=== PATIENT | male | born 1950 | race Caucasian/White ===

== ENCOUNTER 2019-10-29 12:38 | Inpatient (IN) | payer OTHER ==
[~2019-10-29] VITALS: Ht 188 cm; Wt 81.6 kg
[2019-10-29] MEDS: ENOXAPARIN SOD 80 MG/0.8ML SYRINGE SC SCH (00:05)
[~2019-10-29 12:38] MED LIST: ENOXAPARIN SOD 40 MG/0.4 ML SYRINGE SC ONE
[2019-10-29] MEDS ORDERED: SODIUM CHLORIDE 0.9% 1,000 ML IV ONE ×2 (12:43)
[2019-10-29] MEDS ORDERED: EPINEPHrine HCL 1 MG/1 ML AMP SC ONE (12:45)
[2019-10-29] MEDS ORDERED: cefTRIAXone 1GM/50ML D5W 50 ML IV ONE ×2 (12:45→15:15)
[2019-10-29] MEDS ORDERED: diphenhdrAMINE HCL 50 MG/1 ML VL IV ONE (12:45)
[2019-10-29] MEDS ORDERED: ALBUTEROL SULF 2.5 MG/0.5ML(0.5%) NEB SOLN NEB ONE (12:45)
[2019-10-29] MEDS ORDERED: IPRATROPIUM BROM 0.5 MG/2.5ML INH SOL NEB ONE (12:45)
[2019-10-29] MEDS ORDERED: DexAMETHasone SOD PHOS 10MG/1ML VIAL INJ IV ONE (12:45)
[2019-10-29] MEDS ORDERED: ALBUTEROL SULF 2.5 MG/0.5ML(0.5%) NEB SOLN ONE (12:45)
[2019-10-29] MEDS ORDERED: IPRATROPIUM BROM 0.5 MG/2.5ML INH SOL ONE (12:45)
[2019-10-29 13:31] LABS: Hematocrit 47.1 % (41.0-53.0); Hemoglobin 15.1 g/dL (13.5-17.5); Mean Corpuscular Hemoglobin 31.1 pg (28.0-32.0); Mean Corpuscular Volume 97.3 fL (80.0-100.0); Platelet Count (auto) 284 10^3/uL (140-450); Red Blood Cells 4.84 10^6/uL (4.5-5.90); Red Cell Distribution Width 14.2 % (11.8-14.3); White Blood Cell 15.3 10^3/uL (4.4-10.8)
[2019-10-29 13:34] LABS: Basophils % (manual) 0 (0.0-2.0); Blast Cells 0; Eosinophils % (manual) 0 (0-7); Metamyelocytes % 0; Myelocytes % 0; Promyelocytes % 0; Reactive Lymphocytes 0
[2019-10-29 13:43] LABS: INR 1.07 (0.9-1.15); Partial Thromboplastin Time 25.2 sec (23.64-32.05)
[2019-10-29 13:44] LABS: Band Neutrophils % (manual) 1; Lymphocytes % (manual) 23 (10.0-50.0); Monocytes % (manual) 6 (0-12)
[2019-10-29 13:46] LABS: Albumin 3.5 g/dL (3.4-5.0); BUN/Creatinine Ratio 14.4; Calcium 8.5 mg/dL (8.5-10.1); Potassium 4.1 mmol/L (3.5-5.1)
[2019-10-29 13:47] LABS: CRP High Sensitivity 0.53 mg/dL (< 0.3)
[2019-10-29 13:51] LABS: Total Protein 7.4 g/dL (6.4-8.2)
[2019-10-29 13:57] LABS: Lactic Acid w/Reflex 8.6 mmol/L (0.4-2.0)
[2019-10-29] MEDS: MAGNESIUM SULFATE 1GM/100ML 100 ML IV SCH ×2 (14:00→14:05)
[2019-10-29] MEDS ORDERED: ENOXAPARIN SOD 80 MG/0.8ML SYRINGE SC ONE (14:45)
[2019-10-29] MEDS ORDERED: ASPirin 81 mg TAB PO ONE (14:45)
[2019-10-29] MEDS ORDERED: NITROGLYCERIN 0.4 MG SL TAB SL PRN (15:15)
[2019-10-29] MEDS ORDERED: ACETAMINOPHEN 500 MG TAB PO PRN ×3 (15:15→16:30)
[2019-10-29] MEDS ORDERED: LACTULOSE 20Gm/30ML SOLN PO PRN (15:15)
[2019-10-29] MEDS ORDERED: MORPHINE SULF INJ 2 MG/ML SYRINGE 1ML IV PRN (15:15)
[2019-10-29] MEDS ORDERED: ALBUTEROL SULF 2.5 MG/0.5ML(0.5%) NEB SOLN NEB PRN (15:15)
[2019-10-29] MEDS ORDERED: PROMETHAZINE HCL 25 MG/ML 1ML IV PRN (15:15)
[2019-10-29] MEDS ORDERED: traMADol HCL 50 MG TAB PO PRN (15:15)
[2019-10-29] MEDS ORDERED: IOHEXOL 350 MG/ML 100ML IJ ONE (15:39)
[2019-10-29] MEDS: methylPREDNISolone SOD SUCC 40 MG/ML VL IV SCH (17:51)
[2019-10-29] MEDS: MORPHINE SULF INJ 2 MG/ML SYRINGE 1ML IV PRN (17:54)
[2019-10-29] MEDS: SODIUM CHLORIDE 0.9% 1,000 ML IV SCH (17:55)
[2019-10-29] MEDS: DOXYCYCLINE 100 MG TAB/CAP PO SCH (17:56)
[2019-10-29] MEDS: ALBUTEROL SULF 2.5 MG/0.5ML(0.5%) NEB SOLN NEB SCH (18:00)
[2019-10-29] MEDS: IPRATROPIUM BROM 0.5 MG/2.5ML INH SOL NEB SCH (18:00)
[2019-10-29] MEDS: BUDESONIDE (INHALATION) 180 MCG IH IN SCH (22:00)
[2019-10-30] VITALS (7 sets, daily range): BP systolic 98–119; BP diastolic 62–73
[2019-10-30] MEDS: MORPHINE SULF INJ 2 MG/ML SYRINGE 1ML IV PRN (00:15)
--- NOTE | 2019-10-30 03:30 | NUR ---
tele admit from ED pt arrived awake alert and oriented x4 on room air. no distress noted or expressed. pt denies any pain. pt oriented to this nurse, room, bed controls, restroom, use of call light. pt updated on plan of care. pt reports having helped a neighbor moving boxes and afterward he "couldnt catch my breath and i called 911". pt bed locked, low and 2x rails up call light in reach. tele 55 showing nsr 72. this nurse to round q1hr and prn. pt encouraged to call as needed.
[2019-10-30] MEDS: methylPREDNISolone SOD SUCC 40 MG/ML VL IV SCH ×2 (03:45→14:47)
[2019-10-30] MEDS: SODIUM CHLORIDE 0.9% 1,000 ML IV SCH ×2 (04:35→17:51)
[2019-10-30] MEDS: IPRATROPIUM BROM 0.5 MG/2.5ML INH SOL NEB SCH ×4 (06:41→19:03)
[2019-10-30] MEDS: ALBUTEROL SULF 2.5 MG/0.5ML(0.5%) NEB SOLN NEB SCH ×4 (06:41→19:03)
[2019-10-30] MEDS: BUDESONIDE (INHALATION) 180 MCG IH IN SCH (06:42)
--- NOTE | 2019-10-30 07:12 | NUR ---
Opening Shift Note: Assumed care of patient. Patient sleeping at this time. No S/S of distress/SOB or pain. Respirations even and unlabored. Bed in lowest locked position, side rails up x 2, call light within reach. Patient will be instructed on POC and to call for assist PRN, will continue to monitor for changes Q1hr and PRN.
--- NOTE | 2019-10-30 08:15 | NUR ---
Patient placed back on tele monitor. Patient states "I don't like these sticker things." Patient educated on need for them and this time.
[2019-10-30] MEDS: ENOXAPARIN SOD 80 MG/0.8ML SYRINGE SC SCH ×2 (09:51→22:31)
[2019-10-30] MEDS: CHOLECALCIFEROL (VITD3) 1,000UNIT=25mCg TAB PO SCH (09:52)
[2019-10-30] MEDS: cefTRIAXone 1GM/50ML D5W 50 ML IV SCH (09:52)
[2019-10-30] MEDS: DOXYCYCLINE 100 MG TAB/CAP PO SCH ×2 (09:52→22:30)
[2019-10-30] MEDS: ASCORBIC ACID 1,000 MG TAB PO SCH (10:00)
[2019-10-30] MEDS ORDERED: ENOXAPARIN SOD 40 MG/0.4 ML SYRINGE SC SCH (10:00)
[2019-10-30] MEDS: ZINC SULFATE 220mg CAP or TAB PO SCH (10:00)
--- NOTE | 2019-10-30 12:12 | NUR ---
DR. MARINO: Dr. Pacheco at bedside, discussed POC with patient. Patient verbally agreed.
--- NOTE | 2019-10-30 12:42 | NUR ---
PT. REFUSED TO TAKE BREATHING TX. AFTER 2MIN,HE TOOK OFF THE MASK AND SET IT ON THE BED. GUARDS AT THE BEDSIDE. TX. STOPPED. NO RESP. DISTRESS NOTED, WILL CONTINUE TO MONITOR RESP. STATUS.
--- NOTE | 2019-10-30 15:07 | NUR ---
CRITICAL LAB: TROPONIN 0.940 NITESH FLECTHER OLIVE BRINE TESTER PAGED AT THIS TIME
--- NOTE | 2019-10-30 15:10 | NUR ---
RECEIVED CALL FROM VIET FLETCHER. NEW ORDERS RECEIVED.
--- NOTE | 2019-10-30 15:19 | NUR ---
EKG PERFORMED PER BUSINESS SYSTEMS DEVELOPER ORDERS. NO DISTRESS NOTED AT THIS TIME. WILL CONTINUE TO MONITOR.
--- NOTE | 2019-10-30 15:54 | NUR ---
VIET HARVEY AT NURSES STATION TO READ EKG.
[2019-10-30 16:31] LABS: Cholesterol 174 mg/dL (< 200)
[2019-10-30 16:33] LABS: HDL Cholesterol 78 mg/dL (40-59); LDL Cholesterol 84 mg/dL (< 100); Triglycerides 94 mg/dL (< 150)
--- NOTE | 2019-10-30 17:45 | NUR ---
Patient off tele. Refused to be placed back on tele. Patient educated on need for tele. Will attempt again.
[2019-10-30] MEDS ORDERED: FLUT250M2 INH (18:20)
[2019-10-30] MEDS ORDERED: FLUT100M IN (18:20)
--- NOTE | 2019-10-30 18:51 | NUR ---
CLOSING NOTE: Patient resting in bed. No S/S of distress. Care endorsed to NOC RN.
--- NOTE | 2019-10-30 19:12 | NUR ---
Opening Shift Note: Assumed care of patient. Patient awake, alert and oriented x 4, no s/s of SOB or distress, patient denies pain at this time. Bed in lowest locked position with two side rails raised and call witt within reach. Instructed on POC and encouraged to use call witt for assistance, all questions and concerns addressed, patient verbalizes understanding. Will continue to monitor Q1 hr and PRN.
--- NOTE | 2019-10-30 22:00 | NUR ---
CRITICAL TROPONIN OF 0.66, HOSPITALIST PAGED.
--- NOTE | 2019-10-30 22:15 | NUR ---
HOSPITALIST: SPOKE WITH HOSPITALIST MD PAVON REGARDING TROPONIN, LEVELS ARE TRENDING DOWN, NO NEW ORDERS RECEIVED AT THIS TIME. WILL CONTINUE TO MONITOR.
--- NOTE | 2019-10-30 23:41 | NUR ---
CRITICAL LAB TROPONIN 0.633, HOSPITALIST AWARE OF ELEVATED TROPONIN, LEVELS TRENDING DOWN, HOSPITALIST NOT PAGED AT THIS TIME.
[2019-10-31] MEDS: IPRATROPIUM BROM 0.5 MG/2.5ML INH SOL NEB SCH ×4 (00:19→18:54)
[2019-10-31] MEDS: ALBUTEROL SULF 2.5 MG/0.5ML(0.5%) NEB SOLN NEB SCH ×4 (00:19→18:54)
[2019-10-31] MEDS: methylPREDNISolone SOD SUCC 40 MG/ML VL IV SCH ×2 (03:56→15:09)
[2019-10-31 05:00] VITALS: BP 110/69
--- NOTE | 2019-10-31 06:17 | NUR ---
Critical troponin 0.526, MD aware of labs trending down.
[2019-10-31] MEDS: SODIUM CHLORIDE 0.9% 1,000 ML IV SCH ×2 (07:11→20:31)
--- NOTE | 2019-10-31 07:25 | NUR ---
Opening Shift Note: Assumed care of patient, awake and alert. No S/S of distress/SOB or pain. Bed in lowest locked position, side rails up x 2, call light within reach. Patient instructed on POC and to call for assist PRN, will continue to monitor for changes Q1hr and PRN.
[2019-10-31 09:00] VITALS: BP 121/65
[2019-10-31] MEDS: ENOXAPARIN SOD 80 MG/0.8ML SYRINGE SC SCH ×2 (09:52→21:14)
[2019-10-31] MEDS: cefTRIAXone 1GM/50ML D5W 50 ML IV SCH (09:52)
[2019-10-31] MEDS: DOXYCYCLINE 100 MG TAB/CAP PO SCH ×2 (09:52→21:14)
[2019-10-31] MEDS: ZINC SULFATE 220mg CAP or TAB PO SCH (09:52)
[2019-10-31] MEDS: ASCORBIC ACID 1,000 MG TAB PO SCH (09:52)
[2019-10-31] MEDS: CHOLECALCIFEROL (VITD3) 1,000UNIT=25mCg TAB PO SCH (09:53)
[2019-10-31] MEDS: MORPHINE SULF INJ 2 MG/ML SYRINGE 1ML IV PRN ×2 (11:43→21:15)
--- NOTE | 2019-10-31 12:54 | NUR ---
Respiratory note: PT REFUSING SCHEDULED MED NEB TX, STATES HE DOES NOT NEED IT. PT DENIES SOB OR DIFF BREATHING. NO DISTRESS NOTED. PT AND RN AWARE TO HAVE RT PAGED IF NEEDED. HR 68 RR 18 SPO2 94% ON RA BREATH SOUNDS ARE CLEAR/DIMINISHED. PT AWARE NEXT SCHEDULED TX IS 18:00.
[2019-10-31 14:44] VITALS: BP 121/77
[2019-10-31 17:00] VITALS: BP 106/56
--- NOTE | 2019-10-31 18:44 | NUR ---
CLOSING NOTE: Patient resting in bed. No S/S of distress at this time. Care endorsed to NOC RN.
--- NOTE | 2019-10-31 19:18 | NUR ---
Opening note Assumed care of patient. Patient is alert and orientated x4. No sob or distress noted. Patient washed up, provided patient with new gown. Bed locked in lowest position, side rails up x2. POC reviewed. no questions at this time. Will continue to monitor.
--- NOTE | 2019-10-31 21:15 | NUR ---
Pain Patient states pain 8/10 on his back. Medicated with morphine per md orders. Will continue to monitor.
[2019-10-31 22:00] VITALS: BP 113/60
--- NOTE | 2019-10-31 22:02 | NUR ---
Dr Hazel at bedside Dr Hazel at bedside. Will follow any new orders and continue to monitor patient.
[2019-11-01] MEDS: ALBUTEROL SULF 2.5 MG/0.5ML(0.5%) NEB SOLN NEB SCH ×4 (00:18→19:17)
[2019-11-01] MEDS: IPRATROPIUM BROM 0.5 MG/2.5ML INH SOL NEB SCH ×4 (00:18→19:17)
[2019-11-01] MEDS: methylPREDNISolone SOD SUCC 40 MG/ML VL IV SCH ×2 (02:41→15:50)
--- NOTE | 2019-11-01 02:47 | NUR ---
Patient rounding Patient sleeping chest evenly rising. no SOB or distress noted. Will continue to monitor.
[2019-11-01 05:00] VITALS: BP 103/59
--- NOTE | 2019-11-01 06:55 | NUR ---
Closing note Endorsed care to day shift RN.
[2019-11-01 09:00] VITALS: BP 122/74
[2019-11-01] MEDS: ZINC SULFATE 220mg CAP or TAB PO SCH (09:32)
[2019-11-01] MEDS: CHOLECALCIFEROL (VITD3) 1,000UNIT=25mCg TAB PO SCH (09:32)
[2019-11-01] MEDS: SODIUM CHLORIDE 0.9% 1,000 ML IV SCH ×2 (09:51→23:11)
[2019-11-01] MEDS: ASCORBIC ACID 500 MG TAB PO SCH (10:00)
[2019-11-01] MEDS: cefTRIAXone 1GM/50ML D5W 50 ML IV SCH (10:24)
[2019-11-01] MEDS: DOXYCYCLINE 100 MG TAB/CAP PO SCH ×2 (10:24→21:00)
[2019-11-01] MEDS: ENOXAPARIN SOD 80 MG/0.8ML SYRINGE SC SCH ×2 (10:24→21:01)
[2019-11-01 13:00] VITALS: BP 130/77
--- NOTE | 2019-11-01 13:17 | NUR ---
IV insertion: IV access obtained, via clean sterile technique by inserting 18 gauge catheter at right forearm after 1 attempt. IV secured properly. No trauma to site. Patient tolerated well. IV insertion: IV access obtained, via clean sterile technique by inserting 20 gauge catheter at left forearm after 1 attempt. IV secured properly. No trauma to site. Patient tolerated well. IV removal: right wrist IV DC'd with clean sterile technique, catheter fully intact. Pressure dressing applied to site. Patient tolerated well.
[2019-11-01] MEDS: MORPHINE SULF INJ 2 MG/ML SYRINGE 1ML IV PRN ×2 (16:45→21:08)
[2019-11-01 17:00] VITALS: BP 131/58
--- NOTE | 2019-11-01 18:54 | NUR ---
CLOSING NOTE: Patient resting in bed. No S/S of distress or pain at this time. Care endorsed to NOC RN
[2019-11-01 19:11] VITALS: BP 130/77
--- NOTE | 2019-11-01 19:28 | NUR ---
Opening note Assumed care of patient. Patient alert and orientated x4. No sob or distress noted. bed locked in lowest position side rails up x2. POC Reviewed. No questions at this time. Call light within reach. Will continue to monitor.
--- NOTE | 2019-11-01 21:15 | NUR ---
Pain Patient states pain 9/10 in lower back. medicated with Morphine per md orders. Will continue to monitor and reassess pain.
[2019-11-01 22:00] VITALS: BP 139/71
--- NOTE | 2019-11-01 22:00 | NUR ---
Pain reassessment Patient states pain down to tolerable 4/10. He states he will try to sleep. Will continue to monitor patient.
[2019-11-02] MEDS: ALBUTEROL SULF 2.5 MG/0.5ML(0.5%) NEB SOLN NEB SCH ×4 (00:22→19:51)
[2019-11-02] MEDS: IPRATROPIUM BROM 0.5 MG/2.5ML INH SOL NEB SCH ×4 (00:23→19:51)
--- NOTE | 2019-11-02 01:34 | NUR ---
Rounding Patient in bed asleep. Chest evenly rising. NO sob or distress noted. Will continue to monitor.
[2019-11-02] MEDS: methylPREDNISolone SOD SUCC 40 MG/ML VL IV SCH ×2 (02:47→15:08)
[2019-11-02 05:00] VITALS: BP 110/67
--- NOTE | 2019-11-02 07:05 | NUR ---
closing note Endorsed care to day shift RN. Patient is resting in bed no distress or sob noted.
--- NOTE | 2019-11-02 07:20 | NUR ---
Opening Shift Note: Assumed care of patient, awake and alert x 4. No S/S of distress/SOB or pain. Bed in lowest locked position, side rails up x 2, call light within reach. Patient instructed on POC and to call for assist PRN, will continue to monitor for changes Q1hr and PRN.
[2019-11-02 08:32] VITALS: BP 117/76
[2019-11-02] MEDS: ZINC SULFATE 220mg CAP or TAB PO SCH (08:59)
[2019-11-02] MEDS ORDERED: DOBUTamine 1000MCG/ML 100 ML IV ONE (09:37)
[2019-11-02 11:04] VITALS: BP 133/75
[2019-11-02] MEDS ORDERED: ATROPINE SULF 1 MG/10ml SYR IV ONE (11:45)
[2019-11-02] MEDS: cefTRIAXone 1GM/50ML D5W 50 ML IV SCH (12:21)
[2019-11-02] MEDS: DOXYCYCLINE 100 MG TAB/CAP PO SCH ×2 (12:23→21:42)
[2019-11-02] MEDS: MORPHINE SULF INJ 2 MG/ML SYRINGE 1ML IV PRN ×2 (12:23→20:13)
[2019-11-02] MEDS: ENOXAPARIN SOD 80 MG/0.8ML SYRINGE SC SCH ×2 (12:23→21:42)
[2019-11-02] MEDS: CHOLECALCIFEROL (VITD3) 1,000UNIT=25mCg TAB PO SCH (12:23)
[2019-11-02] MEDS: ASCORBIC ACID 500 MG TAB PO SCH (12:23)
[2019-11-02] MEDS: SODIUM CHLORIDE 0.9% 1,000 ML IV SCH (12:24)
[2019-11-02 13:11] VITALS: BP 136/84
--- NOTE | 2019-11-02 16:40 | NUR ---
Nutrition Assessment Notes Please refer to link for full assessment notes. Est Energy needs: [id number] kcals (23-25 kcal/kgBW) Est Protein needs: 83-91 gms/day (1.0-1.1 gm/kgBW) Will continue to monitor and reassess prn. Addendum: 11/02/19 at [address] Amended: Links added.
--- NOTE | 2019-11-02 18:52 | NUR ---
CLOSING NOTE: Patient resting in bed. Bed in lowest locked position, side rails up x 2, call light within reach. care endorsed to NOC RN.
--- NOTE | 2019-11-02 20:00 | NUR ---
RECEIVED PATIENT FROM DAY SHIFT RN. PATENT RESTING IN BED. NO S/S OF DISTRESS NOTED. C/O BACK PAIN @ 11/22, WILL COME BACK FOR PAIN MEDICATION LATER. POC INSTRUCTED AND ENCOURAGED PATIENT TO CALL FOR WATER SYSTEM OPERATOR IF NEEDED. BED IN LOWEST POSITION WITH SIDE RAILS UP X 2. CALL VEGA WITHIN REACH. ALARM ON. CONTINUE TO MONITOR FOR CHANGES Q1N AND PRN.
--- NOTE | 2019-11-02 20:15 | NUR ---
MEDICATED PATIENT FOR PAIN @ 11/22 ORDERED. CONTINUE TO MONITOR.
--- NOTE | 2019-11-02 20:41 | NUR ---
REASSESSED PAIN @ 08/22. CONTINUE TO MONITOR.
[2019-11-02 21:30] VITALS: BP 116/82
[2019-11-02] MEDS: TEMAZEPAM 15 MG CAP PO PRN (21:42)
--- NOTE | 2019-11-02 23:10 | NUR ---
PATIENT WALKED AROUND HIS BED WITH STEADY GAIT. NO S/S OF DISTRESS NOTED. CONTINUE CAR.E
--- NOTE | 2019-11-03 00:24 | NUR ---
Respiratory note: PT REFUSE MED NEB AT THIS TIME
[2019-11-03] MEDS: SODIUM CHLORIDE 0.9% 1,000 ML IV SCH ×3 (01:51→21:59)
[2019-11-03] MEDS: methylPREDNISolone SOD SUCC 40 MG/ML VL IV SCH ×2 (03:11→16:29)
--- NOTE | 2019-11-03 03:12 | NUR ---
PATIENT SLEEPING. NO S/S OF DISTRESS NOTED. CONTINUE CARE.
[2019-11-03 05:00] VITALS: BP 105/65
[2019-11-03] MEDS: ALBUTEROL SULF 2.5 MG/0.5ML(0.5%) NEB SOLN NEB SCH ×5 (06:28→23:42)
[2019-11-03] MEDS: IPRATROPIUM BROM 0.5 MG/2.5ML INH SOL NEB SCH ×5 (06:28→23:42)
[2019-11-03 08:00] VITALS: BP 115/77
[2019-11-03 09:00] VITALS: BP 115/77
[2019-11-03] MEDS: ZINC SULFATE 220mg CAP or TAB PO SCH (09:01)
[2019-11-03] MEDS: cefTRIAXone 1GM/50ML D5W 50 ML IV SCH (09:01)
[2019-11-03] MEDS: ASCORBIC ACID 500 MG TAB PO SCH (09:02)
[2019-11-03] MEDS: DOXYCYCLINE 100 MG TAB/CAP PO SCH ×2 (09:02→21:58)
[2019-11-03] MEDS: CHOLECALCIFEROL (VITD3) 1,000UNIT=25mCg TAB PO SCH (09:02)
[2019-11-03] MEDS: ENOXAPARIN SOD 80 MG/0.8ML SYRINGE SC SCH ×2 (09:03→21:58)
[2019-11-03 12:54] VITALS: BP 116/69
[2019-11-03 17:18] VITALS: BP 124/80
[2019-11-03] MEDS: TEMAZEPAM 15 MG CAP PO PRN (21:58)
[2019-11-03 23:37] VITALS: BP 110/71
[2019-11-04] MEDS: methylPREDNISolone SOD SUCC 40 MG/ML VL IV SCH ×2 (01:51→17:16)
[2019-11-04 05:03] VITALS: BP 120/76
[2019-11-04 05:52] LABS: Basophils # (auto) 0 10 ^3/uL (0-0.2); Basophils % (auto) 0.2 % (0.0-2.0); Eosinophils # (auto) 0 10 ^3/uL (0-0.8); Hematocrit 48.6 % (41.0-53.0); Lymphocytes # (auto) 0.9 10 ^3/uL (0.4-5.4); Lymphocytes % (auto) 4.5 % (10.0-50.0); Mean Corpuscular Hemoglobin 31.4 pg (28.0-32.0); Mean Corpuscular Volume 95.2 fL (80.0-100.0); Monocytes # (auto) 0.6 10 ^3/uL (0-1.3); Neutrophils # (auto) 18.3 10 ^3/uL (1.6-8.6); Neutrophils % (auto) 92.3 % (37.0-80.0); Platelet Count (auto) 196 10^3/uL (140-450); White Blood Cell 19.8 10^3/uL (4.4-10.8)
[2019-11-04 06:10] LABS: Potassium 4.6 mmol/L (3.5-5.1)
[2019-11-04 06:14] LABS: INR 1.12 (0.9-1.15); Partial Thromboplastin Time 27.1 sec (23.64-32.05)
[2019-11-04 06:17] LABS: BUN/Creatinine Ratio 22.9; Calcium 8.3 mg/dL (8.5-10.1)
[2019-11-04] MEDS: IPRATROPIUM BROM 0.5 MG/2.5ML INH SOL NEB SCH ×3 (07:14→19:45)
[2019-11-04] MEDS: ALBUTEROL SULF 2.5 MG/0.5ML(0.5%) NEB SOLN NEB SCH ×3 (07:15→19:45)
[2019-11-04 09:00] VITALS: BP 124/65
[2019-11-04] MEDS: cefTRIAXone 1GM/50ML D5W 50 ML IV SCH (09:00)
[2019-11-04] MEDS: CHOLECALCIFEROL (VITD3) 1,000UNIT=25mCg TAB PO SCH (10:00)
[2019-11-04] MEDS ORDERED: APIXABAN 5 MG TAB PO SCH (10:00)
[2019-11-04] MEDS: ZINC SULFATE 220mg CAP or TAB PO SCH (10:00)
[2019-11-04] MEDS: ASCORBIC ACID 500 MG TAB PO SCH (10:00)
[2019-11-04] MEDS ORDERED: IOHEXOL 350 MG/ML 100ML IJ ONE ×2 (10:23→11:46)
[2019-11-04] MEDS ORDERED: LIDOCAINE 2%HCL (LOCAL ANESTH.) INJ 20ML MDV ONE (10:23)
[2019-11-04] MEDS ORDERED: MIDAZOLAM HCL 1MG/1ML-2 ML VIAL ONE ×2 (10:34→11:36)
[2019-11-04] MEDS ORDERED: fentaNYL CITRATE 100 MCG/2 ML VL ONE ×2 (10:34→11:44)
[2019-11-04] MEDS ORDERED: VERAPAMIL 2.5MG/ML INJ 2ML VIAL IV ONE (10:34)
[2019-11-04] MEDS ORDERED: HEPARIN SODIUM (PORCINE) 5000 UNITS/ML 1ML VIAL ONE (10:34)
[2019-11-04] MEDS ORDERED: SODIUM CHL 0.9% 50 ML ONE (10:35)
[2019-11-04] MEDS ORDERED: ANGIOMAX 250 MG VIAL IV ONE (10:35)
[2019-11-04] MEDS ORDERED: diphenhdrAMINE HCL 50 MG/1 ML VL ONE (11:19)
[2019-11-04] MEDS ORDERED: PRASUGREL HCL 10 MG TAB ONE (11:57)
[2019-11-04] MEDS ORDERED: ASPirin 325 MG TAB ONE ×2 (11:57→12:04)
[2019-11-04] MEDS ORDERED: hydrALAZINE HCL 20 MG/ML VL IV ONE (12:30)
--- NOTE | 2019-11-04 16:08 | NUR ---
assessment Patient is a 69 year old male who is alert and oriented. Patients cognitive abilities are intact. Prior to admission patient lived home with family and functioned independently. Patient informed me he is able to care for his own ADLs. Per patient he will return home to his prior living arrangements post discharge and family will transport him home. Patient has no need for DME. Patients PCP is Dr Greene. Patient called 911 due to shortness of breath. Patient had stent placement. Patient has no post discharge needs identified. I informed patient he has a right to speak to a social worker clinical regarding all care. I informed patient he has a right to participate in any and all discharge planning. Patient does not have a POA and advanced directive. I have offered patient information on POA and advanced directives. I informed the patient the advantages and benefits of having an Advanced Directive. Patient verbalized understanding and agreed to discharge plan. Addendum: 11/04/19 at 1609 by Megan DELA CRUZ Amended: Links added.
[2019-11-04 17:00] VITALS: BP 130/89
[2019-11-04] MEDS: SODIUM CHLORIDE 0.9% 1,000 ML IV SCH (19:30)
[2019-11-04 19:38] VITALS: BP 130/89
--- NOTE | 2019-11-04 19:40 | NUR ---
Opening Shift Note Assumed care of patient, awake and alert. No S/S of distress/SOB or pain. Instructed on POC and to call for assist PRN. Bed in lowest locked position, call light within reach, side rails up x2, fall precautions in place. Will continue to monitor for changes Q1hr and PRN.
[2019-11-04 22:00] VITALS: BP 108/66
[2019-11-05] MEDS: IPRATROPIUM BROM 0.5 MG/2.5ML INH SOL NEB SCH ×2 (00:20→07:25)
[2019-11-05] MEDS: ALBUTEROL SULF 2.5 MG/0.5ML(0.5%) NEB SOLN NEB SCH ×2 (00:20→07:25)
[2019-11-05] MEDS: methylPREDNISolone SOD SUCC 40 MG/ML VL IV SCH (03:14)
[2019-11-05 05:00] VITALS: BP 102/64
[2019-11-05] MEDS: SODIUM CHLORIDE 0.9% 1,000 ML IV SCH (07:11)
[2019-11-05 08:00] VITALS: BP 115/76
[2019-11-05 09:00] VITALS: BP 115/76
[2019-11-05] MEDS: ZINC SULFATE 220mg CAP or TAB PO SCH (09:26)
[2019-11-05] MEDS: cefTRIAXone 1GM/50ML D5W 50 ML IV SCH (09:26)
[2019-11-05] MEDS: ASCORBIC ACID 500 MG TAB PO SCH (09:28)
[2019-11-05] MEDS: CHOLECALCIFEROL (VITD3) 1,000UNIT=25mCg TAB PO SCH (09:28)
[2019-11-05] MEDS ORDERED: ASPirin-EC 81 mg tab PO SCH (10:00)
[2019-11-05] MEDS ORDERED: PRASUGREL HCL 10 MG TAB PO SCH (10:00)
[2019-11-05 13:00] VITALS: BP 111/72
--- NOTE | 2019-11-05 14:15 | NUR ---
PATIENT DISCHARGING HOME WITH FAMILY. TELEMETRY BOX REMOVED AND RETURNED TO TELEMETRY DEPARTMENT. ALL IV ACCESS DISCONTINUED. ALL DISCHARGE INSTRUCTIONS GIVEN. ALL DISCHARGE PAPERWORK SIGNED.
== END 2019-11-05 14:15 | disposition home or self-care (01) | DRG 853 ==
LOC: EDBD 12:38 → ER 12:38 → TELE 12:39 → TELE-WESTW 23:48
PROVIDERS: ADMIT Internal Medicine; ATTEND Family Medicine
PROC: 4A033BC Measurement of Arterial Pressure, Coronary, Percutaneous Approach (ICD-10-PCS; principal; 2019-11-04)
PROC: 027137Z Dilation of Coronary Artery, Two Arteries with Four or More Drug-eluting Intraluminal Devices, Percutaneous Approach (ICD-10-PCS; 2019-11-04)
PROC: 4A023N7 Measurement of Cardiac Sampling and Pressure, Left Heart, Percutaneous Approach (ICD-10-PCS; 2019-11-04)
PROC: B2111ZZ Fluoroscopy of Multiple Coronary Arteries using Low Osmolar Contrast (ICD-10-PCS; 2019-11-04)
PROC: B2151ZZ Fluoroscopy of Left Heart using Low Osmolar Contrast (ICD-10-PCS; 2019-11-04)
DX: A41.9 Sepsis, unspecified organism (principal); J18.9 Pneumonia, unspecified organism; I26.99 Other pulmonary embolism without acute cor pulmonale; J44.1 Chronic obstructive pulmonary disease with (acute) exacerbation; J44.0 Chronic obstructive pulmonary disease with (acute) lower respiratory infection; I25.10 Atherosclerotic heart disease of native coronary artery without angina pectoris; Z20.828 Contact with and (suspected) exposure to other viral communicable diseases; F17.210 Nicotine dependence, cigarettes, uncomplicated; G89.29 Other chronic pain; M54.9 Dorsalgia, unspecified; N28.1 Cyst of kidney, acquired; R06.03 Acute respiratory distress; I10 Essential (primary) hypertension
CPT/HCPCS: 36415; 71045; 71275; 76775; 78452; 78582; 80048; 80053; 80061; 82565; 82728; 83605; 83615; 83735; 83880; 84443; 84484; 85007; 85025; 85027; 85379; 85610; 85730; 86141; 87040; 87070; 87804; 87880; 92928; 93005; 93017; 93306; 93458; 93970; 94640; 96365; 96366; 96367; 96372; 96375; 99152; 99153; C1874; C1887; G0378; J0171; J0696; J1100; J2250